=== PATIENT | female | born 1965 | race Caucasian/White ===

== ENCOUNTER → 2017-12-13 11:25 | Outpatient (CLI) | payer OTHER, SELFPAY ==
[2017-12-13 15:46] LABS: Absolute Lymphocyte Count 2.76 X10^3/ul (0.83-4.51); Absolute Neutrophil Count 4.3 X10^3/uL (2.0-7.7); Basophil# 0.02 X10^3/uL; Basophil% 0.3 % (0-1); Eosinophil# 0.14 X10^3/uL; Eosinophils% 1.8 % (0-5); Hematocrit 43.1 % (37-47); Hemoglobin 14.1 g/dl (12.0-15.0); Lymphocyte # 2.76 X10^3/ul (4.0); Lymphocyte % 35.8 % (19-41); Mean Corp Hgb Conc 32.7 g/gl (32-36); Mean Corpuscular Hgb 29.6 pg (27.0-32.0); Mean Corpuscular Volume 90.4 fL (81-99); Mean Platelet Vol. 13.8 fl (6.2-12.0); Monocyte# 0.52 X10^3/uL; Monocyte% 6.7 % (0-10); Neutrophil # 4.27 X10^3/uL (2.7-7.7); Neutrophil % 55.3 % (47-70); Platelet Count 187 K/mm3 (150-450); RBC Distribution Width CV 13.4 % (11.6-14.6); RBC Distribution Width SD 44.4 fl (35.1-43.9); Red Blood Count 4.77 M/mm3 (4.2-5.4); White Blood Count 7.7 K/mm3 (4.4-11.0)
[2017-12-13 15:47] LABS: POSITIVE COUNT NO; POSITIVE DIFFERENTIAL NO; POSITIVE MORPHOLOGY NO
[2017-12-13 16:05] LABS: T4 Free Direct 1.15 ng/dL (0.76-1.46); Thyroid Stim Hormone (TSH) 2.52 uIU/mL (0.358-3.74)
== END ==
PROVIDERS: Family Provider Family Medicine; PCP Family Medicine; Visit Provider Family Medicine
DX: J02.9 Acute pharyngitis, unspecified (principal); E04.9 Nontoxic goiter, unspecified
CPT/HCPCS: 36415; 84439; 84443; 85025

== ENCOUNTER → 2017-12-19 10:43 | Outpatient (CLI) | payer OTHER, SELFPAY ==
--- NOTE | 2017-12-19 10:45 | US_ITS ---
STUDY: THYROID ULTRASOUND REASON FOR EXAM: Female, 52 years old. Enlarged thyroid gland. TECHNIQUE: Ultrasound evaluation of the thyroid was performed with real-time and static barton-scale imaging. COMPARISON: None. FINDINGS: RIGHT LOBE: The right lobe of the thyroid gland measures 4.6 x 1.6 x 1.9 cm. There is a heterogeneous echotexture. There are multiple solid nodules measuring up to 6 mm. LEFT LOBE: The left lobe of the thyroid gland measures 4.1 x 1.7 x 1.7 cm. There is a heterogeneous echotexture. There are multiple solid nodules measuring up to 12 mm. ISTHMUS: The isthmus measures 4 mm. . The regional lymph nodes are normal. US/Thyroid IMPRESSION: Heterogenous echotexture of the thyroid parenchyma with multiple bilateral solid nodules measuring up to 6 mm on the right and up to 12 mm on the left. Electronically Signed: Jj Evans MD at 3:31 EST Tel , Service support ,
== END ==
PROVIDERS: Family Provider Family Medicine; PCP Family Medicine; Visit Provider Family Medicine
DX: J02.9 Acute pharyngitis, unspecified (principal)
CPT/HCPCS: 76536

== ENCOUNTER → 2018-01-09 18:48 | Outpatient (CLI) | payer OTHER, SELFPAY ==
--- NOTE | 2018-01-09 09:30 | ASPS_PTH ---
PATIENT: OWEN KASPER LOC: [facility] U#:[id number] AGE/SX: 60/F ROOM: RE01/09/[address]: Dr. Wayne Tidwell MD : 1965 BED: DIS: SPEC #: [id number] RECD: 01/09/18 17:50 STATUS: MINERVA CODY #: [id number] RAMON: 01/09/18 09:[address]: Wayne Tidwell DEPT: CYTOLOGY RECD BY: David Cordoba ENTERED: 01/10/18 09:26 SP TYPE: ASPIRATION OTHR DR: Dr. Cierra Damon, DO Tissues: Thyroid gland, NOS Procedures: Pap Stain (control) Special Stain Group II Cytology Other HEADER OPERATION: Left thyroid FNA PRE-OP DIAGNOSIS: Left thyroid nodules TISSUE SUBMITTED: Left thyroid slides (5) DIAGNOSIS CYTOLOGY Left thyroid nodule, FNA (smear): Consistent with benign follicular nodule. SJ:sp 01/11/18 COMMENT Correlation and clinical, radiologic findings and appropriate followup are necessary. CYTOLOGY STUDY Slides are reviewed. The specimen is adequate for evaluation. The specimen consists of benign follicular cells and small amount of colloid. CYTOLOGY GROSS Received are five smears labeled with the patient's name and designated per the requisition as left thyroid. Submitted for staining. 01/10/18 TC: 5 [facility]: [id number]
== END ==
PROVIDERS: Family Provider Family Medicine; PCP Family Medicine; Visit Provider Surgery
DX: E04.1 Nontoxic single thyroid nodule (principal)
CPT/HCPCS: 88161; 88313

== ENCOUNTER → 2018-10-30 08:54 | Outpatient (CLI) | payer OTHER, SELFPAY ==
[2018-10-30 11:43] LABS: Absolute Lymphocyte Count 2.47 X10^3/ul (0.83-4.51); Absolute Neutrophil Count 3.1 X10^3/uL (2.0-7.7); Basophil# 0.02 X10^3/uL; Basophil% 0.3 % (0-1); Eosinophil# 0.16 X10^3/uL; Eosinophils% 2.6 % (0-5); Hemoglobin 14.4 g/dl (12.0-15.0); Lymphocyte # 2.47 X10^3/ul (4.0); Lymphocyte % 39.8 % (19-41); Mean Corpuscular Hgb 29.2 pg (27.0-32.0); Mean Corpuscular Volume 91.3 fL (81-99); Mean Platelet Vol. 13.5 fl (6.2-12.0); Monocyte# 0.48 X10^3/uL; Monocyte% 7.7 % (0-10); Neutrophil # 3.05 X10^3/uL (2.7-7.7); Neutrophil % 49.3 % (47-70); POSITIVE COUNT NO; POSITIVE DIFFERENTIAL NO; POSITIVE MORPHOLOGY NO; Platelet Count 204 K/mm3 (150-450); RBC Distribution Width CV 13.6 % (11.6-14.6); RBC Distribution Width SD 44.8 fl (35.1-43.9); Red Blood Count 4.93 M/mm3 (4.2-5.4); White Blood Count 6.2 K/mm3 (4.4-11.0)
[2018-10-30 12:04] LABS: ALB/GLOB Ratio 1.2 RATIO (0.9-2.4); AST(SGOT) 15 U/L (15-37); Alanine Aminotransfer ALT/SGPT 30 U/L (13-56); Albumin, Serum 3.8 g/dL (3.2-5.0); Alkaline Phosphatase 91 U/L (45-117); Anion Gap 7 (5-15); BUN 14 mg/dL (7-18); BUN/Creat Ratio 16.2 RATIO (10-20); Calcium,Total 8.6 mg/dL (8.5-10.1); Chloride 109 mmol/L (98-107); Creatinine, Serum 0.86 mg/dL (0.55-1.02); EST Glomerular Filtration Rate 73 mL/min (>60); Est Glom Filt Rate - Afr Amer 88 mL/min (>60); Globulin 3.1 g/dL (2.2-4.2); Glucose 114 mg/dL (74-106); Potassium 4.4 mmol/L (3.5-5.1); Protein, Total 6.9 g/dL (6.4-8.2); Sodium Level 141 mmol/L (136-145)
[2018-10-30 12:07] LABS: Vitamin B12 363 pg/mL (211-911); Vitamin D,25 Hydroxy 27.4 ng/mL (29.95-100.01)
--- OUTSIDE RECORDS SUMMARY | 2019-01-04 00:23 | XMS RPT_ITS ---
:1965 Author Organization OHIP Support Name Relationship Address Phone SHANEL KASPER Unavailable [address] + [place] [address] IAC Unavailable [address] + [place] [phone] MAJO SHANEL Unavailable [id number] + [place] [phone] IAC Unavailable [address] + [place] [address] SHANEL KASPER Unavailable [address] + [place] [phone] IAC Unavailable [address] + [place] [phone] SHANEL KASPER Unavailable [address] + [place] [phone] IAC Unavailable [address] + [place] [phone] SHANEL KASPER Unavailable [phone] + [place] [phone] IAC Unavailable [address] + [place] [phone] IAC Unavailable [address] + [place] [phone] SHANEL KASPER Unavailable [address] + [place] [phone] IAC Unavailable [address] + [place] [phone] ESTRELLA ELLIOTT Unavailable [address] [facility] [address] + [place] [address] SHANEL KASPER Unavailable [address] [facility] [address] + [place] [phone] IAC Unavailable [address] + [place] [address] ESTRELLA ELLIOTT Unavailable [phone] + [place] [address] Care Team Providers Name Role Phone Cierra Damon Attending Unavailable Malys, Cierra Primary Care Unavailable Clovis Rod Attending Unavailable Malys, Cierra Primary Care Unavailable Clovis oRd Attending Unavailable Clovis Rod Referring Unavailable Malys, Cierra Primary Care Unavailable Cebul, Wayne Attending Unavailable Malys, Cierra Referring Unavailable Malys, Cierra Primary Care Unavailable Cebul, Wayne Attending Unavailable Malys, Cierra Referring Unavailable Malys, Cierra Primary Care Unavailable Cebul, Wayne Attending Unavailable Malys, Cierra Primary Care Unavailable Cebul, Wayne Referring Unavailable Gabriel Barajas Attending Unavailable Malys, Cierra Referring Unavailable PROBLEMS PROBLEMS DATE TYPE CONDITION / CODE ATTENDING STATUS SOURCE 10/30/2018 Unknown E55.9 - Vitamin D Malys, Cierra Active [place] deficiency, Community unspecified / Hospital E55.9(ICD-10) Repository 10/30/2018 Unknown E53.8 - Deficiency Malys, Cierra Active [place] of other specified Community B group vitamins / Hospital E53.8(ICD-10) Repository 10/30/2018 Unknown R22.1 - Localized Malys, Cierra Active [place] swelling, mass and Community lump, neck / Hospital R22.1(ICD-10) Repository 10/30/2018 Unknown Z51.81 - Encounter MalCierra romero Active [place] for therapeutic Community drug level Hospital monitoring / Repository Z51.81(ICD-10) 01/09/2018 Unknown E04.2 - Nontoxic CebulWayne Active [place] multinodular Community goiter / Hospital E04.2(ICD-10) Repository 01/09/2018 Unknown E04.1 - Nontoxic Cebul, Wayne Active [place] single thyroid Community nodule / Hospital E04.1(ICD-10) Repository 12/19/2017 Unknown J02.9 - Acute MarcelClovis Active [place] pharyngitis, Community unspecified / Hospital J02.9(ICD-10) Repository 12/13/2017 Unknown E04.9 - Nontoxic Marcel, Clovis Active [place] goiter, Community unspecified / Hospital E04.9(ICD-10) Repository PROCEDURES PROCEDURES No Procedure Records FoundRESULTS RESULTS CBC W/DIFF, AUTOMATED Collected: 10/30/2018 Status: F Source: [place] 8:57 AM [facility] REPOSITORY TYPE CODE TESTS RESULT OUT OF RANGE REFERENCE UNITS LAB L100.1000 4.4-11.0 K/mm3 Normal WBC 6.2 LAB L100.1200 4.2-5.4 M/mm3 Normal RBC 4.93 LAB L100.1300 12.0-15.0 g/dl Normal HGB 14.4 LAB L100.1400 37-47 % Normal HCT 45.0 LAB L100.1500 81-99 fL Normal MCV 91.3 LAB L100.1600 27.0-32.0 pg Normal MCH 29.2 LAB L100.1700 32-36 g/gl Normal MCHC 32.0 LAB L100.1810 11.6-14.6 % Normal RDW CV 13.6 LAB L100.1820 35.1-43.9 fl High RDW SD 44.8 LAB L100.1900 150-450 K/mm3 Normal PLT 204 LAB L100.2000 6.2-12.0 fl High MPV 13.5 LAB L100.2100 47-70 % Normal NEUT% 49.3 LAB L100.2200 19-41 % Normal LY% 39.8 LAB L100.2300 0-10 % Normal MONO% 7.7 LAB L100.2400 0-5 % Normal EO% 2.6 LAB L100.2500 0-1 % Normal BASO% 0.3 LAB L100.2550 0.0-0.9 % Normal IM GRAN % 0.300 Result Comment: IG% - Immature Granulocytes (promyelocytes, myelocytes and metamyelocytes) > 1% indicates that a LEFT SHIFT is Present. LAB L100.2620 2.0-7.7 X10 3/uL Normal Absolute Neut 3.1 LAB L100.2720 0.83-4.51 X10 3/ul Normal Absolute Lymph 2.47 Performed By: #### L100.0100 #### [facility] [address] [place], [place], [address] COMPREHENSIVE METABOLIC Collected: 10/30/2018 Status: F Source: [place] 8:57 AM [facility] REPOSITORY TYPE CODE TESTS RESULT OUT OF RANGE REFERENCE UNITS LAB L501.0100 74-106 mg/dL High GLU 114 Result Comment: Fasting Glucose result from 100 to 125 mg/dL suggests IMPAIRED HOMEOSTASIS per A.D.A. criteria. Please note revised GLUCOSE reference range effective 2017. LAB L501.1000 7-18 mg/dL Normal BUN 14 LAB L501.1100 0.55-1.02 mg/dL Normal CREAT,SERUM 0.86 Result Comment: The validity of the calculated GFR AND GFRAA in patients over 70 years has not been determined. Clinical correlation is essential. LAB L501.1110 >60 mL/min Normal EST GFR 73 Result Comment: Non- GFR Calc LAB L501.1115 >60 mL/min Normal EST GFR - AA 88 Result Comment: GFR Calc LAB L501.1300 10-20 RATIO Normal BUN/CRE 16.2 LAB L501.1500 6.4-8.2 g/dL T Normal PROT 6.9 LAB L501.1800 3.2-5.0 g/dL Normal ALB 3.8 LAB L501.1950 2.2-4.2 g/dL Normal GLOB 3.1 LAB L501.2000 0.9-2.4 RATIO Normal A/G 1.2 LAB L501.2200 8.5-10.1 mg/dL CA Normal 8.6 LAB L501.4100 15-37 U/L Normal AST 15 LAB L501.4305 45-117 U/L Normal ALK P 91 LAB L501.4405 13-56 U/L Normal ALT 30 LAB L501.4600 0.20-1.00 mg/dL T Normal BILI 0.50 LAB L501.5300 136-145 mmol/L NA Normal 141 LAB L501.5600 3.5-5.1 mmol/L K Normal 4.4 LAB L501.5900 98-107 mmol/L High CL 109 LAB L501.6100 21.0-32.0 mmol/L Normal CO2 25.0 LAB L501.6200 5-15 Normal GAP 7 Performed By: #### L500.4050 #### [facility] [place], [address] VITAMIN B12 Collected: 10/30/2018 Status: F Source: [place] 8:57 AM [facility] REPOSITORY TYPE CODE TESTS RESULT OUT OF RANGE REFERENCE UNITS LAB L503.0105 211-911 pg/mL Normal Vitamin B12 363 Performed By: #### L503.0105, L506.1000 #### [facility] [address] [place], [address] VITAMIN D,25 HYDROXY Collected: 10/30/2018 Status: F Source: [place] 8:57 AM [facility] REPOSITORY TYPE CODE TESTS RESULT OUT OF REFERENCE UNITS RANGE LAB L506.1000 29.95-100.01 ng/mL Low Vitamin D 27.4 25-OH Result Comment: Vitamin D 25(OH) Status Range Deficiency <20 ng/mL (50nmol/L) Insuffciency 20 - 30 ng/mL (50 - 75 nmol/L) Sufficiency 30 - 100 ng/mL (75 - 250 nmol/L) Toxicity >100 ng/mL (>250 nmol/L) Performed By: #### L503.0105, L506.1000 #### [facility] [address] [place], [address] SURGERY VISIT REPORT Observed: 01/09/2018 Status: F Source: [place] 9:54 AM [facility] REPOSITORY [facility] [address] [place] [address] OFFICE VISIT Date of Service: 01/09/18 MR#: [id number] Acct: [id number] Name: MABLE KASPER Joseluis Rep #: [id number] : 1965 Provider: Wayne Tidwell MD Age/Sex: 52/F Location: [facility] Status: Signed Intake Intake Visit Reasons: left thyroid FNA Gate Person Required: No Is patient in pain?: No Allergies prochlorperazine [From Compazine] Allergy (Verified 01/09/18 09:26) Unknown prochlorperazine edisylate [From Compazine] Allergy (Verified 01/09/18 09:26) Unknown prochlorperazine maleate [From Compazine] Allergy (Verified 01/09/18 09:26) Unknown Gkzzaop-Bln-Cby Reductase Inhibitor Allergy (Verified 01/09/18 09:26) Unknown codeine Adverse Reaction (Verified 01/09/18 09:26) Other Medications Ketorolac [Toradol] 10 mg PO Q6H PRN #20 tab 08/22/15 [Rx Confirmed 01/09/18] Propranolol HCl 80 mg PO BID 02/08/16 [History Confirmed 01/09/18] proMETHazine tablet [Phenergan] 25 mg PO Q4H PRN PRN 02/08/16 [History Confirmed 01/09/18] Ergocalciferol [Vitamin D] 50,000 unit PO Q7D 04/02/17 [History Confirmed 01/09/18] Gabapentin [Neurontin] 300 mg PO TID 04/02/17 [History Confirmed 01/09/18] Albuterol Inhaler [Ventolin Hfa] 1 - 2 puff INHALATION Q4H PRN PRN #1 inhaler 07/19/17 [Rx Confirmed 01/09/18] noehmlosyy-wdyuxufiohfhz-knvoecqg 50 mg-300 mg-40 mg capsule 1 cap PO ONCE 12/31/17 [History Confirmed 01/09/18] lorazepam 0.5 mg tablet 0.5 mg PO Q4H PRN 12/31/17 [History Confirmed 01/09/18] oxycodone 5 mg capsule 5 mg PO Q3H 12/31/17 [History Confirmed 01/09/18] pantoprazole 40 mg tablet,delayed release 40 mg PO QAM 12/31/17 [History Confirmed 01/09/18] varenicline 1 mg tablet 1 mg PO BID 12/31/17 [History Confirmed 01/09/18] PFSH Medical History Multiple thyroid nodules (Acute) Palpitations (Chronic) GERD (gastroesophageal reflux disease) (Chronic) Obesity (Chronic) Body mass index greater than 30 (Chronic) Hyperlipidemia (Acute) Migraines (Acute) thumbnail removal (Acute) HTN (hypertension) (Chronic) Surgical History H/O: hysterectomy (Acute) History of laparoscopic cholecystectomy (Acute) S/P partial hysterectomy (Acute) Family History Mother Multiple sclerosis Father Diabetes Hypertension Cancer Brother Diabetes Hypertension CAD (coronary artery disease) Social History Smoking Status: Current every day smoker alcohol intake: never HPI HPI HPI: MABLE KASPER, is a 52 F who presents to the office today for ultrasound fine-needle aspiration left thyroid Office Procedures 80193 FNA Thyroid Performed By: Procedure performed by: Doyle Details: Informed consent was obtained Ultrasound guided final aspiration vague left thyroid nodule Patient was taken to procedure room. She was placed on the table. Under ultrasound guidance left thyroid was inspected. It appeared to have a mildly diffusely heterogenous texture. A vague nodule more in the superior lateral aspect of the gland was identified. Under ultrasound guidance 1% lidocaine mixed 50-50 with 0.5% Marcaine was used as a local anesthetic. A total of 8 cc ended up being used. Admitted the patient was very anxious throughout the entire procedure today. The nodule was somewhat difficult to consistently get visualized. A 25-gauge needle was initially advanced in the lesion but no specimen could be obtained. I then upgraded to 23-gauge needles. 3 separate passes were performed. Specimen was smeared out on slides and treated with fixative. At this point I felt was pertinent to await the cytology prior to proceeding with further intervention. The patient will be notified of cytology results as they become available Wayne Tidwell M.D., F.A.C.S. Procedure Time Out Time Out Informed consent given: Yes Consent signed: Yes Time out checklist: patient, procedure, site marked/identified, positioning of patient, supplies available, allergies confirmed, team agrees on procedure Time out staff in room: Yes Time out verified: Yes Time out date: 01/09/18 Time out time: 09:26 Assessment AND Plan 1. Multiple thyroid nodules E04.2 Plan The patient will be notified of cytology results as they become available then further follow-up recommendations. Please refer to my previous office visit recommending that she pursue a ENT referral regarding her hoarseness Wayne Tidwell M.D., F.A.C.S. Plan Detail Other Orders Orders: Coding Level of Care Code No Charge Diagnoses Multiple thyroid nodules E04.2 01/09/18 0954 <Electronically signed by Wayne Tidwell MD> Date Wayne Tidwell MD Cosigner Signature: Date (if applicable) CC: ASPIRATION (SLIDES Observed: 01/09/2018 Status: F Source: [place] ONLY) 9:30 AM [facility] REPOSITORY Patient: MABLE KASPER : 1965 (52/F) Acct Num: [id number] Phys: Diann ESTES,Wayne Unit Num: [id number] Loc: [facility] Specimen: [id number] Received: 01/09/18 - 1749 Spec Type: ASPIRATION TISSUES TISSUES: Thyroid gland, NOS COMMENT Correlation and clinical, radiologic findings and appropriate followup are necessary. CYTOLOGY GROSS Received are five smears labeled with the patient's name and designated per the requisition as left thyroid. Submitted for staining. / 01/10/18 TC: 5 CPT: 52501 CYTOLOGY STUDY Slides are reviewed. The specimen is adequate for evaluation. The specimen consists of benign follicular cells and small amount of colloid. DIAGNOSIS CYTOLOGY Left thyroid nodule, FNA (smear): Consistent with benign follicular nodule. SJ:sp 01/11/18 HEADER OPERATION: Left thyroid FNA PRE-OP DIAGNOSIS: Left thyroid nodules TISSUE SUBMITTED: Left thyroid slides (5) Signed Timothy Wright 01/11/18 <signature on file> Performed By: #### PASPS #### [facility] [address] [place], [address] SURGERY VISIT REPORT Observed: 12/31/2017 Status: F Source: [place] 10:37 AM [facility] REPOSITORY [facility] [address] [id number] OFFICE VISIT Date of Service: 12/31/17 MR#: [id number] Acct: [id number] Name: MABLE KASPER Rep #: [id number] : 1965 Provider: Wayne Tidwell MD Age/Sex: 52/F Location: [facility] Status: Signed Intake Vital Signs12/31/17 Height 5 ft 4 in 12/31/17 Weight: 190 lb 12/31/17 Body Mass Index (BMI) 32.5 Intake Visit Reasons: THYROID NODULE Gate Person Required: No Is patient in pain?: No Allergies prochlorperazine [From Compazine] Allergy (Verified 12/31/17 09:10) Unknown prochlorperazine edisylate [From Compazine] Allergy (Verified 12/31/17 09:10) Unknown prochlorperazine maleate [From Compazine] Allergy (Verified 12/31/17 09:10) Unknown Sfzkhtt-Cqd-Enh Reductase Inhibitor Allergy (Verified 12/31/17 09:10) Unknown codeine Adverse Reaction (Verified 12/31/17 09:10) Other Medications Ketorolac [Toradol] 10 mg PO Q6H PRN #20 tab 08/22/15 [Rx Confirmed 12/31/17] ProMETHAzine [Phenergan] 25 mg PO Q4H PRN PRN 02/08/16 [History Confirmed 12/31/17] Propranolol HCl 80 mg PO BID 02/08/16 [History Confirmed 12/31/17] Ergocalciferol [Vitamin D] 50,000 unit PO Q7D 04/02/17 [History Confirmed 12/31/17] Gabapentin [Neurontin] 300 mg PO TID 04/02/17 [History Confirmed 12/31/17] Albuterol Inhaler [Ventolin Hfa] 1 - 2 puff INHALATION Q4H PRN PRN #1 inhaler 07/19/17 [Rx Confirmed 12/31/17] cibzypgbiy-brvhxizvinmgu-xvymxxsn 50 mg-300 mg-40 mg capsule 1 cap PO ONCE 12/31/17 [History Confirmed 12/31/17] lorazepam 0.5 mg tablet 0.5 mg PO Q4H PRN 12/31/17 [History Confirmed 12/31/17] oxycodone 5 mg capsule 5 mg PO Q3H 12/31/17 [History Confirmed 12/31/17] pantoprazole 40 mg tablet,delayed release 40 mg PO QAM 12/31/17 [History Confirmed 12/31/17] varenicline 1 mg tablet 1 mg PO BID 12/31/17 [History Confirmed 12/31/17] PFSH Medical History Palpitations (Chronic) GERD (gastroesophageal reflux disease) (Chronic) Obesity (Chronic) Body mass index greater than 30 (Chronic) Hyperlipidemia (Acute) Migraines (Acute) thumbnail removal (Acute) HTN (hypertension) (Chronic) Surgical History H/O: hysterectomy (Acute) History of laparoscopic cholecystectomy (Acute) S/P partial hysterectomy (Acute) Family History Mother Multiple sclerosis Father Diabetes Hypertension Cancer Brother Diabetes Hypertension CAD (coronary artery disease) Social History Smoking Status: Current every day smoker alcohol intake: never HPI HPI HPI: MABLE KASPER, is a 52 F who presents to the office today for surgical consultation regarding hoarseness. The patient is referred by Dr. Rod for evaluation of abnormal thyroid clinical findings and ultrasound findings. A written copy of my surgical consult recommendations will return to him. The patient has been a lifelong cigarette smoker. In the past month she has developed hoarseness. She also notes anterior neck pain. On clinical examination thyroid was felt to be enlarged. At the [facility] on December 19, 2017 she had thyroid ultrasound done. The right lobe measured 4.6 cm there are multiple solid nodules measuring up to 6 mm. The left lobe measures 4.1 cm. Multiple solid nodules measuring up to 12 mm were identified. The patient denies any history of head neck radiation treatment. There is no personal or family history of thyroid cancer. ROS General General: Yes fatigue; no weight change, appetite, colon cancer, breast cancer or weakness HEENT HEENT: Yes difficulty swallowing and swollen glands; no eye injury, eye surgery or hoarseness Endo Endocrine: No thyroid disease, diabetes mellitus, thyroid cancer, Hair loss, heat intolerance or cold intolerance Skin Skin: No rash or changing moles Breast Breast: No left breast lump, right breast lump, nipple discharge, breast pain, abnormal mammogram, abnormal US or breast enlargement Musc Musculoskeletal: Yes back problems; no arthritis, rheumatoid arthritis, gout or joint pain Cardio Cardiovascular: Yes high blood pressure; no murmur, pacemaker, heart disease, atrial fibrillation, heart attack, heart stent, palpitations, shortness of breat with exertion or chest pain Psych Psychiatric: No depression, anxiety or hearing voices Resp Respiratory: No shortness of breath, No sleep apnea, No cough, No COPD, No asthma, No emphysema, No wheezing Gastro Gastrointestinal: Yes acid reflux, No abdominal pain, No nausea or vomiting, No diarrhea, No constipation, No blood in stool, No hemorrhoids, No ulcers, No gallbladder problem, No black,tarry stools Sergo Hematologic: No blood thinners, No blood disorders, No bleeding, No anemia, No blood clots Neuro Neurologic: No system reviewed and no additional complaints, except as docu, No as per HPI, No abnormal walking, No abnormal hearing, No abnormal movements, No abnormal speech, No behavioral changes, No burning sensations, No confusion, No seizure-like activity, No unsteadiness, No dizziness, No localized weakness, No frequent falls, No headache(s), No lack of coordination, No loss of vision, No memory loss, Yes numbness, No other visual disturbances, No radiating pain, No restless legs, No sensory deficit, No fainting, Yes tingling, No tremor(s), No weakness, No other Exam Neck Other: Neck is supple, she does not appear to have any anterior neck tenderness. I do not appreciate significant gland abnormality. Carotids are 3+ without bruits. I do not detect any cervical or supraclavicular adenopathy. Chvostek is negative Chest Breast Palpation: No nipple discharge Resp Auscultation: clear to auscultation bilaterally Other: Increased anterior posterior diameter Cardio Rate: regular rate Rhythm: regular rhythm Heart Sounds: no murmurs Assessment AND Plan Problems 1. Multiple thyroid nodules E04.2 Plan 52-year-old female with multiple thyroid nodules. Less than 10 mm nodules on the right. At least one 12 mm nodule on the left. Hoarseness is a primary complaint. The patient had a very heavy odor of tobacco. She is at least a 1 pack a day smoker. I recommend that we schedule her for an ultrasound-guided left thyroid fine-needle aspiration. I will inspect both sides during that appointment. I discussed the technique, benefits, risks, alternatives. She may have some anterior neck soreness secondary to thyroiditis and I believe that biopsy is pertinent. With hoarseness as her primary complaint and her long-term history of tobacco abuse I am referring to ENT in hopes of excluding a primary hypopharyngeal/laryngeal process. She has had an opportunity to ask questions answered. I very much appreciate the kind opportunity of assisting with her surgical care. Cc: Dr. Marcel Tidwell M.D., F.A.C.S. Medications Discontinued: Coding Level of Care Code adrianna Lemon fwd Diagnoses Multiple thyroid nodules E04.2 12/31/17 1037 <Electronically signed by Wayne Tidwell MD> Date Wayne Tidwell MD Cosigner Signature: Date (if applicable) CC: Clovis Rod DO THYROID Observed: 12/19/2017 Status: F Source: [place] 10:46 AM [facility] REPOSITORY [facility] Imaging Services [address] [place] [address] Thyroid MR#: [id number] Acct: [id number] Name: MABLE KASPER Rep #: [id number] : 1965 F 52 From: Jj Evans MD PCP: Cierra Damon DO Status: REG CLI Study: Thyroid Date of Exam: 12/19/17 Exam# [id number] Ordering Dr: Clovis Rod DO STUDY: THYROID ULTRASOUND REASON FOR EXAM: Female, 52 years old. Enlarged thyroid gland. TECHNIQUE: Ultrasound evaluation of the thyroid was performed with real-time and static barton-scale imaging. COMPARISON: None. FINDINGS: RIGHT LOBE: The right lobe of the thyroid gland measures 4.6 x 1.6 x 1.9 cm. There is a heterogeneous echotexture. There are multiple solid nodules measuring up to 6 mm. LEFT LOBE: The left lobe of the thyroid gland measures 4.1 x 1.7 x 1.7 cm. There is a heterogeneous echotexture. There are multiple solid nodules measuring up to 12 mm. ISTHMUS: The isthmus measures 4 mm. . The regional lymph nodes are normal. US/Thyroid IMPRESSION: Heterogenous echotexture of the thyroid parenchyma with multiple bilateral solid nodules measuring up to 6 mm on the right and up to 12 mm on the left. Electronically Signed: Jj Evans MD at 3:31 EST Tel , Service support , CC: Cierra Damon DO; Clovis Rod DO Chemical Project Engineer: Signed CBC W/DIFF, AUTOMATED Collected: 12/13/2017 Status: F Source: [place] 11:35 AM [facility] REPOSITORY TYPE CODE TESTS RESULT OUT OF RANGE REFERENCE UNITS LAB L100.1000 4.4-11.0 K/mm3 Normal WBC 7.7 LAB L100.1200 4.2-5.4 M/mm3 Normal RBC 4.77 LAB L100.1300 12.0-15.0 g/dl Normal HGB 14.1 LAB L100.1400 37-47 % Normal HCT 43.1 LAB L100.1500 81-99 fL Normal MCV 90.4 LAB L100.1600 27.0-32.0 pg Normal MCH 29.6 LAB L100.1700 32-36 g/gl Normal MCHC 32.7 LAB L100.1810 11.6-14.6 % Normal RDW CV 13.4 LAB L100.1820 35.1-43.9 fl High RDW SD 44.4 LAB L100.1900 150-450 K/mm3 Normal PLT 187 LAB L100.2000 6.2-12.0 fl High MPV 13.8 LAB L100.2100 47-70 % Normal NEUT% 55.3 LAB L100.2200 19-41 % Normal LY% 35.8 LAB L100.2300 0-10 % Normal MONO% 6.7 LAB L100.2400 0-5 % Normal EO% 1.8 LAB L100.2500 0-1 % Normal BASO% 0.3 LAB L100.2550 0.0-0.9 % Normal IM GRAN % 0.100 Result Comment: IG% - Immature Granulocytes (promyelocytes, myelocytes and metamyelocytes) > 1% indicates that a LEFT SHIFT is Present. LAB L100.2620 2.0-7.7 X10 3/uL Normal Absolute Neut 4.3 LAB L100.2720 0.83-4.51 X10 3/ul Normal Absolute Lymph 2.76 Performed By: #### L100.0100 #### [facility] [address], [address] THYROID STIM HORMONE Collected: 12/13/2017 Status: F Source: [place] (TSH) 11:35 AM [facility] REPOSITORY TYPE CODE TESTS RESULT OUT OF RANGE REFERENCE UNITS LAB L501.9520 0.358-3.74 uIU/mL Normal TSH 2.52 Performed By: #### L501.9520, L506.0400 #### [facility] [address] [place], [address] T4 FREE DIRECT Collected: 12/13/2017 Status: F Source: [place] 11:35 AM [facility] REPOSITORY TYPE CODE TESTS RESULT OUT OF RANGE REFERENCE UNITS LAB L506.0400 0.76-1.46 ng/dL Normal T4 FREE 1.15 DIRECT Performed By: #### L501.9520, L506.0400 #### [facility] [address] [place], [address] ALLERGIES ALLERGIES DATE TYPE / NAME / CODE REACTION SEVERITY SOURCE CODE 01/09/2018 Drug prochlorperazine Unknown Unknown [place] Allergy/41 edisylate/[id number](R [facility] [id number][facility] 01/09/2018 Drug prochlorperazine Unknown Unknown [place] Allergy/41 maleate/[id number]([id number] 01/09/2018 Drug Lnwloug-Hxn-Fqd Unknown Unknown [place] Allergy/41 Reductase [facility] [id number]( Inhibitor/[id number]([facility]) XNORM) Repository 01/09/2018 Drug prochlorperazine/F0060 Unknown Unknown [place] Allergy/41 32102(RXNORM) Community [id number]([facility]) Repository 01/09/2018 Drug codeine/[id number](RXN Other Unknown [place] Allergy/41 ORM) Community [id number]([facility]) Repository ENCOUNTERS ENCOUNTERS ADMIT/DISCHARGE ACCOUNT ADMITTING ENCOUNTER LOCATION SOURCE NUMBER CLASS 10/30/2018 [id number] Ambulatory [place] 7 [facility] ing:BFHLAB Repository 07/31/2018/ [id number] Ambulatory BMSBuilding:B [place] 8 4 [place].[facility] Repository 01/09/2018 [id number] Ambulatory [place] 4 [facility] ing:LABSPEC Repository 01/09/2018/ [id number] Ambulatory BMSBuilding:B [place] 8 2 [facility] Repository 12/31/2017/ [id number] Ambulatory BMSBuilding:B [place] 8 3 [facility] Repository 12/19/2017 [id number] Ambulatory [place] 5 [facility] ing:USHP Repository 12/13/2017 [id number] Ambulatory [place] 3 [facility] ing:BFHLAB Repository PAYERS PAYERS ENCOUNTER GUARANTOR PAYER SUBSCRIBER SOURCE 10/30/2018 MABLE Huggins Primary Insurance:MED MABLE [place]oster [id number] [facility]: [id number] [address]Lfr: [id number] Repository Date:5837-89-70NC [address] ([address]) [id number], [place] [address]GF: CHECK WEBSITE 10/30/2018 Secondary NOT GIVENUNK [place] Insurance:SELF PAY [facility] Number: Effective Repository Date:2018-10-30 07/31/2018 AMBLE Huggins Primary NOT GIVENUNK [place] [id number] CR Insurance:SELF PAY [address] [address]Lwu: (419) Number: Effective Repository [phone] () Date:2018-07-31 01/09/2018 MABLE K Primary Insurance:MED MABLE K [place] [id number] CR MUTUAL TPAPolicy DAWSONDOB: [address] Number: [id number] Hospital [address]Ctj: [phone]) [id number] Repository [phone] () Date:0761-18-60BZ [address] [address], [place] [address]DH: CHECK WEBSITE 01/09/2018 Secondary NOT GIVENUNK [place] Insurance:SELF PAY [facility] Number: Effective Repository Date:2018-01-09 01/09/2018 MABLE K Primary Insurance:MED MABLE K [place] [id number] CR MUTUAL TPAPolicy DAWSONDOB: [address] Number: [id number] Hospital [address]Zvg: [id number] Repository [phone] () Date:7859-18-91PV [address] [address], [place] [address]RL: CHECK WEBSITE 01/09/2018 Secondary NOT GIVENUNK [place] Insurance:SELF PAY [facility] Number: Effective Repository Date:2018-01-09 12/31/2017 MABLE K Primary Insurance:MED MABLE K [place] [id number] CR MUTUAL TPAPolicy DAWSONDOB: [address] Number: [id number] Hospital [address]Lqu: [phone]) [id number] Repository [phone] () Date:2142-79-70ZQ [address] [address], [place] [address]IL: CHECK WEBSITE 12/31/2017 Secondary NOT GIVENUNK [place] Insurance:SELF PAY [facility] Number: Effective Repository Date:2017-12-24 12/19/2017 Mable K Primary Insurance:MED Mable K [place] [id number] Cr MUTUAL TPAPolicy DawsonDOB: [address] Number: [id number] Hospital [address]Utd: [phone]) [id number] Repository [phone] () Date:4512-77-91[place] [address] [address], [place] [address]RO: CHECK WEBSITE 12/19/2017 Secondary NOT GIVENUNK [place] Insurance:SELF PAY [facility] Number: Effective Repository Date:2017-12-18 12/13/2017 Mable Huggins Primary Insurance:MED Mable [id number] [facility] TPAPoly DawsonDOB: [address] Number: [id number] Hospital [address]Ctt: [phone]) [id number] Repository [phone] () Date:2885-12-08QC [address] [address], [place] [address]QL: CHECK WEBSITE 12/13/2017 Secondary NOT GIVENUNK [place] Insurance:SELF PAY [facility] Number: Effective Repository Date:2017-12-13
== END ==
PROVIDERS: Family Provider Family Medicine; PCP Family Medicine; Visit Provider Family Medicine
DX: Z51.81 Encounter for therapeutic drug level monitoring (principal); R53.83 Other fatigue; E55.9 Vitamin D deficiency, unspecified; E53.8 Deficiency of other specified B group vitamins; R22.1 Localized swelling, mass and lump, neck
CPT/HCPCS: 36415; 80053; 82306; 82607; 85025

== ENCOUNTER → 2018-11-18 11:42 | Outpatient (CLI) | payer OTHER, SELFPAY ==
--- NOTE | 2018-11-18 11:46 | US_ITS ---
STUDY: SUPERFICIAL ULTRASOUND - RIGHT NECK REASON FOR EXAM: Female, 53 years old. Swelling of the lateral right neck. TECHNIQUE: A superficial ultrasound was performed with real-time and static barton-scale imaging. COMPARISON: None. FINDINGS: Real-time sonographic imaging demonstrates no focal mass or fluid collection. Normal musculature and soft tissues are present. Limited views of the left neck were performed for comparison. There is no major difference between the images. US/Head/Neck Soft Tissue IMPRESSION: No sonographic evidence of abnormality in the right lower neck. Electronically Signed: Zachary Garcia DO at 18:43 EST Tel [phone], Service support ,
== END ==
LOC: US 11:42
PROVIDERS: Family Provider Family Medicine; PCP Family Medicine; Referring Provider Family Medicine; Visit Provider Family Medicine
DX: R22.1 Localized swelling, mass and lump, neck (principal)
CPT/HCPCS: 76536

== ENCOUNTER → 2019-01-13 11:24 | Outpatient (CLI) | payer OTHER, SELFPAY ==
--- NOTE | 2019-01-13 11:30 | US_ITS ---
STUDY: THYROID ULTRASOUND REASON FOR EXAM: Female, 53 years old. History of thyroid nodules. Follow-up examination. TECHNIQUE: Ultrasound evaluation of the thyroid was performed with real-time and static barton-scale imaging. COMPARISON: Comparison is made with prior study dated December 19, 2017. FINDINGS: RIGHT LOBE: The right lobe of the thyroid gland measures 4.2 cm x 1.7 cm x 2.1 cm. There is a heterogeneous echotexture. Once again, multiple solid nodules are seen scattered throughout the right lobe. The largest measures 7 mm x 7 mm x 5 mm. This is in the upper pole LEFT LOBE: The left lobe of the thyroid gland measures 4 cm x 1.7 cm x 2.0 cm. There is a heterogeneous echotexture. Once again, multiple nodules are seen. The largest measures 1.3 cm x 0.8 cm x 0.9 cm. ISTHMUS: The isthmus measures 6.0 mm. The regional lymph nodes are normal. US/Thyroid IMPRESSION: And homogeneous echotexture of both lobes of the thyroid gland with multiple nodules bilaterally more prominent on the left side. Electronically Signed: Vivek Torres, at 9:45 EDT , Service support ,
== END ==
PROVIDERS: Family Provider Family Medicine; PCP Family Medicine; Referring Provider Otolaryngology; Visit Provider Otolaryngology
DX: E04.2 Nontoxic multinodular goiter (principal)
CPT/HCPCS: 76536

== ENCOUNTER → 2020-11-13 08:49 | Outpatient (CLI) | payer OTHER, SELFPAY ==
--- NOTE | 2020-11-13 08:53 | CT_ITS ---
STUDY: CT CHEST WITHOUT CONTRAST- LOW DOSE SCREENING PROTOCOL REASON FOR EXAM: Female, 55 years old. Current smoker. 42 pack per year history. No current symptoms of lung cancer or pulmonary infection. Shared decision-making with referring PCP documented in patient''s record. RADIATION DOSAGE (If Supplied By Facility): CTDIvol = ( 3.02 ) mGy, DLP = ( 97.79 ) mGycm TECHNIQUE: Low dose screening CT examination performed from the base of the neck to the upper abdomen. Sagittal and coronal reformatted images performed. Sagittal and coronal MIP images provided. The measurements provided are average, rounded measurements per ACR guidelines. COMPARISON: None. FINDINGS: 1.2 cm sebaceous cyst of the medial right breast. Mild emphysematous changes. 4 mm noncalcified nodule in the posterior subpleural left lower lobe lungs on image 1:15 and follow-up CT is recommended in 12 months. There is no demonstrated pleural abnormality. There is a small pericardial effusion. Normal mediastinum. Normal hilar regions. Normal unenhanced pulmonary arteries. Normal aorta arch and descending thoracic aorta. Normal osseous structures. Status post cholecystectomy. CT/Low Dose CT Lung Screening IMPRESSION: 1. 4 mm noncalcified left lower lobe nodule and follow-up CT the chest is recommended 12 months document stability.. 2. Incidental findings include small pericardial effusion.. ASSESSMENT CATEGORY: LungRADS 2 - Benign Appearance or Behavior. Continue annual screening with LDCT in 12 months, per established ACR guidelines. Electronically Signed: David Gardner MD at 9:36 EST Tel , Service support ,
== END ==
PROVIDERS: PCP Student in an Organized Health Care Education/Training Program; Referring Provider Student in an Organized Health Care Education/Training Program; Visit Provider Student in an Organized Health Care Education/Training Program
DX: Z72.0 Tobacco use (principal); Z12.2 Encounter for screening for malignant neoplasm of respiratory organs
CPT/HCPCS: 71271

== ENCOUNTER 2021-07-21 15:28 | Emergency (ER) | payer OTHER, SELFPAY ==
[2021-07-21 15:29] VITALS: BP 160/99; PULSE 112; RESP 18; TEMP 36.6; O2SAT 95; BMI 31.8
--- NOTE | 2021-07-21 15:50 | EKG12_ITS ---
Test Reason : CP Blood Pressure : / mmHG Vent. Rate : 102 BPM Atrial Rate : 102 BPM P-R Int : 124 ms QRS Dur : 080 ms QT Int : 356 ms P-R-T Axes : 061 079 068 degrees QTc Int : 463 ms Sinus tachycardia with Premature atrial complexes Otherwise normal ECG Confirmed by CORIE ESTES, STEVE ([id number]), newspaper photo editor MARIA D YORK ([id number]) on 07/25/2021 12:22:27 PM Referred By: MARCELINA/ARTHUR Confirmed By:CONNOR FONTENOT MD
--- NOTE | 2021-07-21 15:53 | EDS_ITS ---
HPI History of Present Illness Chief Complaint: Chest Pain Informant: patient Onset/Context/Timing Onset: Days (2) Activity at onset: gradual Timing: Waxes and wanes Quality: Positive for Tightness Location: Left Parasternal Worsened By: Nothing Relieved By: Nothing Associated Symptoms: Positive for Nausea and Palpitations; Negative for Vomiting, Diaphoresis, Dyspnea, Cough, Fever, Lightheadedness and Acid Reflux Narrative Narrative: Patient presents with chest pain that has been waxing and waning over the past 2 days. Patient states it came on gradually. Patient describes as a tightness. Patient states it is worse of the left parasternal area. Patient states that today she had some pain going up into her jaw for several hours. Patient also states the pain has radiated to her left arm. Patient states she has been feeling fatigued over the last couple days. Patient admits to nausea but denies any vomiting. Patient admits to some palpitations last night. Patient states nothing makes her pain worse and nothing makes it better. CVD Risk Factors: Positive for Smoking; Negative for Hypertension, Diabetes, Hypercholesterolemia and Family History 1' </=55 PE Risk Factors: Negative for Recent Travel/Surgery, Recent Immobilization, Prior DVT or PE, Cancer and OCP + Smoking + >/=35 PFSH PFSH Medical History (Updated 07/21/21 @ 19:[address] Robby Bruno, DO) Body mass index greater than 30 GERD (gastroesophageal reflux disease) HTN (hypertension) Hyperlipidemia Migraines Multiple thyroid nodules Obesity Palpitations thumbnail removal Home Medications ketorolac 10 mg PO Q6H PRN #20 tab 08/22/15 [Rx Last Taken 02/08/16] promethazine 25 mg PO Q4H PRN PRN 02/08/16 [History Last Taken 02/08/16] albuterol sulfate 1 - 2 puff INHALATION Q4H PRN PRN #1 inhaler 07/19/17 [Rx Last Taken Unknown] vcxtespdix-lbesobiwrvjdy-rzowoxsq 50 mg-300 mg-40 mg capsule 1 cap PO ONCE 12/31/17 [History Last Taken Unknown] Allergy/AdvReac Type Severity Reaction Status Date / Time prochlorperazine Allergy Unknown Verified 07/21/21 15:31 [From Compazine] prochlorperazine edisylate Allergy Unknown Verified 07/21/21 15:31 [From Compazine] prochlorperazine maleate Allergy Unknown Verified 07/21/21 15:31 [From Compazine] Vqjygqu-Nhi-Kkf Reductase Allergy Unknown Verified 07/21/21 15:31 Inhibitor codeine AdvReac Other Verified 07/21/21 15:31 Family History Mother Multiple sclerosis Father Diabetes Hypertension Cancer Brother Diabetes Hypertension CAD (coronary artery disease) Surgical History H/O: hysterectomy History of laparoscopic cholecystectomy S/P partial hysterectomy Social History Smoking Status: Current every day smoker tobacco type: cigarettes alcohol intake: never ROS ROS ED Constitutional Constitutional ED: Denies chills or fever(s) Eyes Eyes: Reports blurry vision; Denies change in vision ENT ENT ED: Denies rhinorrhea or sore throat Cardiovascular Cardiovascular: Reports chest pain and palpitations Respiratory/Chest Respiratory/Chest: Denies cough or dyspnea Gastrointestinal Gastrointestinal: Reports nausea; Denies abdominal pain or vomiting Genitourinary Genitourinary ED: Denies dysuria or hematuria Musculoskeletal Musculoskeletal: Reports neck pain; Denies back pain Integumentary Denies abscess or rash Neurologic Neurologic: Reports headache(s); Denies weakness Allergic/Immunologic Allergic/Immunologic ED: Denies mouth swelling or urticaria EXAM Physical Exam Const Vital Signs: 07/21/21 15:29 07/21/21 16:22 07/21/21 16:23 Temperature 98 F Temperature Source Temporal Pulse Rate 112 H 95 Respiratory Rate 18 20 H Respiratory Effort Respiratory Pattern Blood Pressure 160/99 H 140/95 H Blood Pressure Mean 119 110 Pulse Ox 95 97 97 Oxygen Delivery Method Room Air Room Air Room Air 07/21/21 16:24 07/21/21 17:00 Temperature Temperature Source Pulse Rate 94 Respiratory Rate 16 Respiratory Effort Normal Non-Labored Respiratory Pattern Normal Blood Pressure 136/86 H Blood Pressure Mean 102 Pulse Ox 95 Oxygen Delivery Method Room Air Positive well nourished and well developed General Appearance ED: well developed HEENT normocephalic and atraumatic Eyes PERRL and EOMs intact bilaterally Neck supple and no JVD Chest Wall inspection of chest normal and palpation of chest normal Resp normal respiratory effort and clear to auscultation bilaterally Effort and Inspection: Negative for respiratory distress Cardio regular rate, regular rhythm and no murmurs GI normal to inspection, nondistended, normoactive bowel sounds, soft to palpation, non-tender and non-distended Extremity normal to inspection General Extremety ED: Negative for edema or tenderness General Extremity: Negative for edema Neuro oriented x3, CN's II-XII intact bilaterally and no sensory deficits noted Sensorium / Orientation: awake and alert Motor Exam: strength 5/5 throughout Psych mental status grossly normal Heart Score History: Moderately Suspicious ECG: Normal Age: >45 - <65 years Risk Factors: 1 or 2 Risk Factors Troponin: </= Normal Limit Score: 3 MDM MDM MDM Narrative Medical decision making narrative: EKG was obtained. On my interpretation, it showed a normal sinus rhythm with occasional PACs with a rate of 102. [place] interval, QRS interval, and QTc intervals were all normal. [place] was normal. There are no acute ST or T wave changes. Portable 1 view chest x-ray was obtained. On my interpretation, lung cisneros are clear. There is normal cardiac silhouette. Bony thorax is normal. There is no acute process noted. Radiologist also interpreted the x-ray and agrees. CBC and basic metabolic profile were obtained. Initial high-sensitivity troponin was obtained and was normal. 2-hour repeat high-sensitivity troponin was normal. Patient has a HEART score of 3. Patient was advised that this is low risk for acute cardiac event. Patient was instructed to follow-up with her primary care physician in 5 to 7 days for further evaluation. Patient was advised that she may need an outpatient stress test since her last stress test was in 2013. Patient understands and is agreeable with the plan. All questions were answered. Lab Data Attestation: I reviewed the patient's lab results. Labs: Laboratory Results - last 24 hr 07/21/21 07/21/21 07/21/21 16:17 16:17 18:15 WBC 10.8 RBC 5.07 Hgb 14.7 Hct 44.7 MCV 88.2 MCH 29.0 MCHC 32.9 RDW Std Deviation 43.7 RDW Coeff of Germain 13.5 Plt Count 222 MPV 11.4 Immature Gran % (Auto) 0.200 Neut % (Auto) 67.2 Lymph % (Auto) 24.7 [place] % (Auto) 6.2 Eos % (Auto) 1.3 Baso % (Auto) 0.4 Absolute Neuts (auto) 7.2 Absolute Lymphs (auto) 2.66 Nucleated RBC % 0 Sodium 143 Potassium 3.6 Chloride 111 H Carbon Dioxide 26.0 Anion Gap 6 BUN 13 Creatinine 0.66 Estim Creat Clear Calc 77.80 Est GFR (MDRD) Af Amer 118 Est GFR (MDRD) Non-Af 97 BUN/Creatinine Ratio 19.6 Glucose 82 Calcium 8.7 Troponin I High Sens 7 8 Radiography Chest X-Ray - ED: 1 View, Read by ED Physician, Read by Radiologist and Normal Diagnostic Testing: Clinical Impression(s) from Imaging Studies Chest X-Ray 07/21/21 16:20 IMPRESSION: Normal x-ray examination of the chest. Electronically Signed: David Gardner MD at 17:15 EDT Tel , Service support , EKG Initial EKG: Attestation: I personally reviewed and interpreted this EKG as follows: Interpretation: Sinus Rhythm (102 with occasional PACs.) and No Acute Injury Pattern Prior EKG tracings: available for review Prior: Unchanged (04/02/2017) Discharge Plan Triage Chief Complaint: Chest Pain ED Provider: Robby Bruno Dx/Rx/DC Orders Clinical Impression: Chest pain of uncertain etiology Instructions: ED Chest Pain, Uncertain Cause Prescriptions: No Action jxhlttgprc-fdsadhuwuowkk-wqel 50-300-40 mg capsule 1 cap PO ONCE RF: 0 ketorolac 10 MG tablet 10 mg PO Q6H PRN (Reason: Migraine Symptoms) Qty: 20 RF: 0 promethazine 25 MG tablet 25 mg PO Q4H PRN PRN (Reason: Nausea/Vomiting) RF: 0 albuterol sulfate 1 INHALER inhaler 1 - 2 puff INHALATION Q4H PRN PRN (Reason: Wheezing) Qty: 1 RF: 0 Primary Care Provider: Kait Lao Referrals: Kait Lao MD [Primary Care Provider] - 3-5 Days Disposition Disposition: Home, Self Care
--- NOTE | 2021-07-21 16:20 | RAD_ITS ---
STUDY: X-RAY CHEST REASON FOR EXAM: Female, 55 years old. chest pain TECHNIQUE: Single AP portable view of the chest. COMPARISON: 04/02/1970 FINDINGS: The lungs are clear and expanded. There is no demonstrated pleural abnormality. Normal size heart. Normal mediastinum and aida. Normal visualized pulmonary arteries. Normal visualized aortic arch and descending thoracic aorta. Normal visualized thoracic spine. Normal visualized ribs, clavicles, and shoulders. There is no demonstrated abnormality of the visualized soft tissue structures of the upper abdomen. RAD/Chest 1 View (Portable) IMPRESSION: Normal x-ray examination of the chest. Electronically Signed: David Gardner MD at 17:15 EDT Tel , Service support ,
[2021-07-21 16:22] VITALS: BP 140/95; PULSE 95; RESP 20; O2SAT 97
[2021-07-21 16:23] VITALS: O2SAT 97
[2021-07-21 16:31] LABS: Absolute Lymphocyte Count 2.66 X10^3/uL (0.83-4.51); Absolute Neutrophil Count 7.2 X10^3/uL (2.0-7.7); Basophil# 0.04 X10^3/uL; Basophil% 0.4 % (0-1); Eosinophil# 0.14 X10^3/uL; Eosinophils% 1.3 % (0-5); Hematocrit 44.7 % (37-47); Hemoglobin 14.7 g/dL (12.0-15.0); Lymphocyte # 2.66 X10^3/ul (0.83-4.51); Lymphocyte % 24.7 % (19-41); Mean Corp Hgb Conc 32.9 g/dL (32-36); Mean Corpuscular Volume 88.2 fL (81-99); Mean Platelet Vol. 11.4 fl (6.2-12.0); Monocyte# 0.67 X10^3/uL; Monocyte% 6.2 % (0-10); NRBC Flagged by Analyzer 0 % (0-5); Neutrophil # 7.24 X10^3/uL (2.7-7.7); Neutrophil % 67.2 % (47-70); Platelet Count 222 K/mm3 (150-450); RBC Distribution Width CV 13.5 % (11.6-14.6); RBC Distribution Width SD 43.7 fl (35.1-43.9); Red Blood Count 5.07 M/mm3 (4.2-5.4); White Blood Count 10.8 K/mm3 (4.4-11.0)
[2021-07-21] MEDS: Aspirin 81 MG TAB.CHEW 324 MG PO (16:32)
[2021-07-21 16:50] LABS: Anion Gap 6 (5-15); BUN 13 mg/dL (7-18); BUN/Creat Ratio 19.6 RATIO (10-20); Calcium,Total 8.7 mg/dL (8.5-10.1); Chloride 111 mmol/L (98-107); Creatinine, Serum 0.66 mg/dL (0.55-1.02); EST Glomerular Filtration Rate 97 mL/min (>60); Est Glom Filt Rate - Afr Amer 118 mL/min (>60); Glucose 82 mg/dL (74-106); Potassium 3.6 mmol/L (3.5-5.1); Sodium Level 143 mmol/L (136-145); Troponin-I HS 7 pg/mL (3.0-54.0)
[2021-07-21 17:00] VITALS: BP 136/86; PULSE 94; RESP 16; O2SAT 95
[2021-07-21 18:39] LABS: Troponin-I HS 8 pg/mL (3.0-54.0)
== END 2021-07-21 19:20 | disposition home or self-care (01) ==
PROVIDERS: Emergency Provider Emergency Medicine; PCP Student in an Organized Health Care Education/Training Program
DX: R07.9 Chest pain, unspecified (principal); K21.9 Gastro-esophageal reflux disease without esophagitis; I10 Essential (primary) hypertension; E66.9 Obesity, unspecified; F17.210 Nicotine dependence, cigarettes, uncomplicated; Z79.899 Other long term (current) drug therapy
CPT/HCPCS: 71045; 80048; 84484; 85025; 93005; 99285; A4216

== ENCOUNTER → 2022-03-16 | Outpatient (CLI) | payer OTHER, SELFPAY ==
--- NOTE | 2022-03-16 07:46 | CT_ITS ---
STUDY: LOW DOSE CT LUNG CANCER SCREENING REASON FOR EXAM: Female, 56 years old. SCREENING FOR LUNG CA. Patient smoked 1 pack per day for 45 years. RADIATION DOSAGE (If Supplied By Facility): CTDIvol = ( 3.02 ) mGy, DLP = ( 92.89 ) mGycm TECHNIQUE: No contrast was administered. Low dose technique was utilized (average mAS-38 and kVp 120). 1.25 mm axial source images with a slice interval of 1.25-mm were reconstructed in lung windows. 2.5 mm axial source images with a slice interval of 2.5-mm were reconstructed in lung windows. 5.0 mm axial source images with a slice interval of 5.0-mm were reconstructed in soft tissue windows. COMPARISON: Comparison is made with prior study dated 11/13/2020. The previously seen sebaceous cyst in the medial aspect of the right breast has decreased in size. NODULES: Stable 1.5 mm noncalcified nodule in the posterior lateral aspect of the left lower lobe as seen on axial image #116. Emphysema: Mild degree of hyperinflation. Mild increased markings in the lingular segment of the left upper lobe suggestive of scarring. Calcified granuloma in the medial aspect of the left upper lobe. Endobronchial lesion: None Aorta: Atherosclerotic plaque formation of the aortic arch. CORONARY ARTERIES: Coronary artery calcification Heart: Stable mild degree of pericardial thickening along the anterior aspect. Pulmonary artery: Unremarkable Mediastinal nodes: Unremarkable Other chest and abdominal findings: CT/Low Dose CT Lung Screening IMPRESSION: Lung-RADS category 2 - Continue annual screening with LDCT in 12 months. IMPORTANT NOTES FOR USE: ACR Lung-RADS Version 1.1 Assessment Categories Release Date: 2018 Category: Coded 0-4 bases on nodule(s) with highest degree of suspicion. Negative screen is defined as categories 1 and 2; a positive screen is defined as categories 3 and 4. Category 3 and 4A nodules that are unchanged on interval CT should be coded as category 2, and individuals returned to screening in 12 months. Category 4X: Category 3 or 4 nodules with additional imaging findings that increase the suspicion of lung cancer, such as spiculation, GGN that doubles in size in 1 year, enlarged lymph notes, etc. Category Modifiers: S (significant finding unrelated to lung cancer) Electronically Signed: Vivek Torres MD at 9:41 EDT ,
== END | disposition home or self-care (01) ==
PROVIDERS: PCP Student in an Organized Health Care Education/Training Program; Referring Provider Student in an Organized Health Care Education/Training Program; Visit Provider Student in an Organized Health Care Education/Training Program
DX: Z12.2 Encounter for screening for malignant neoplasm of respiratory organs (principal)
CPT/HCPCS: 71271

== ENCOUNTER → 2023-03-05 | Outpatient (CLI) | payer BC, SELFPAY ==
[2023-03-05 12:38] LABS: Absolute Lymphocyte Count 2.36 X10^3/uL (0.83-4.51); Absolute Neutrophil Count 6.9 X10^3/uL (2.0-7.7); Basophil# 0.04 X10^3/uL; Basophil% 0.4 % (0-1); Eosinophil# 0.06 X10^3/uL; Eosinophils% 0.6 % (0-5); Hematocrit 46.4 % (37-47); Hemoglobin 14.9 g/dL (12.0-15.0); Lymphocyte # 2.36 X10^3/ul (0.83-4.51); Lymphocyte % 23.7 % (19-41); Mean Corp Hgb Conc 32.1 g/dL (32-36); Mean Corpuscular Hgb 29.9 pg (27.0-32.0); Mean Platelet Vol. 10.9 fl (6.2-12.0); Monocyte# 0.62 X10^3/uL; Monocyte% 6.2 % (0-10); NRBC Flagged by Analyzer 0 % (0-5); Neutrophil # 6.85 X10^3/uL (2.7-7.7); Neutrophil % 68.7 % (47-70); Platelet Count 223 K/mm3 (150-450); RBC Distribution Width CV 13.4 % (11.6-14.6); RBC Distribution Width SD 45.6 fl (35.1-43.9); Red Blood Count 4.99 M/mm3 (4.2-5.4)
[2023-03-05 13:03] LABS: Anion Gap 6 (5-15); BUN 11 mg/dL (7-18); BUN/Creat Ratio 14.9 RATIO (10-20); Calcium,Total 9.9 mg/dL (8.5-10.1); Chloride 107 mmol/L (98-107); Creatinine, Serum 0.74 mg/dL (0.55-1.02); EST Glomerular Filtration Rate 86 mL/min (>60); Est Glom Filt Rate - Afr Amer 104 mL/min (>60); Glucose 113 mg/dL (74-106); Potassium 4.1 mmol/L (3.5-5.1); Sodium Level 142 mmol/L (136-145)
== END | disposition home or self-care (01) ==
LOC: PAT 05-01 16:20
PROVIDERS: PCP Internal Medicine; Referring Provider Internal Medicine Cardiovascular Disease; Visit Provider Internal Medicine Cardiovascular Disease
DX: R94.31 Abnormal electrocardiogram [ECG] [EKG] (principal)
CPT/HCPCS: 36415; 80048; 85025

== ENCOUNTER → 2023-05-16 | Outpatient (CLI) | payer BC, SELFPAY ==
[2023-05-16 13:14] VITALS: BP 137/82; PULSE 67; RESP 14; TEMP 36.6; O2SAT 95; BMI 32.8
--- NOTE | 2023-05-16 13:23 | CT_ITS ---
STUDY: CT CHEST WITH CONTRAST REASON FOR EXAM: Female, 57 years old. CHEST PAIN * LIMITED CHEST OVERED ONLY* RADIATION DOSAGE (If Supplied By Facility): CTDIvol = ( 30.71 ) mGy, DLP = ( 1002.55 ) mGycm TECHNIQUE: Transaxial imaging was performed following intravenous administration of . Individualized dose optimization techniques were used for this CT. COMPARISON: No relevant priors. FINDINGS: CHEST There is a 1 cm bulla in the medial aspect of the right upper lobe as seen on axial image #55. There is a 2.3 cm x 3.5 cm irregular nodular density which is pleural-based in the posterior lingula segment of the left upper lobe as seen on axial image #132. This may represent a focal area of scarring although a pulmonary nodule cannot be excluded. Similar appearing densities are seen in the peripheral lateral aspect of the right middle lobe as seen on axial image #[address] A [address] scan of the thorax following IV contrast is recommended. There is no demonstrated pleural abnormality. There are calcifications of the coronary arteries. Calcified mediastinal lymph nodes. Normal hilar regions. Normal unenhanced pulmonary arteries. There is atherosclerotic calcification of the aortic arch. Normal osseous structures. There is no demonstrated abnormality of the visualized upper abdomen. CT/Limited Chest CT Cardiac Only IMPRESSION: Coronary calcification. Patchy nodular densities seen in the peripheral aspect of the lingular segment of the left upper lobe as well as the lateral aspect of the right middle lobe as described. A dedicated CT scan of the thorax: IV contrast is recommended. Electronically Signed: Vivek Torres MD at 9:07 EDT ,
[2023-05-16 13:28] VITALS: BP 137/82; PULSE 67
[2023-05-16] MEDS: Nitroglycerin SL (ED/IMG/CATH) 0.4 MG TABLET SL (13:28)
[2023-05-16 13:34] VITALS: BP 134/71; PULSE 71; RESP 16; O2SAT 96
--- NOTE | 2023-05-17 08:22 | CCTA.WCONT ---
CCTA w/Cont Coronary Arteries Date of Study:: 05/17/23 Chest pain Coronary Calcium Scoring: High-resolution Computed Tomographic imaging of the chest was performed on [05/16/2023], with particular attention paid to the coronary arteries. Intravenous contrast agent was administered per protocol and images reconstructed and displayed. LEFT MAIN CORONARY ARTERY: This arose from the left coronary cusp and bifurcating to left anterior descending artery and left circumflex artery [] LEFT ANTERIOR DESCENDING CORONARY ARTERY: This vessel did not appear to have any significant luminal irregularities and no atherosclerotic plaquing [] LEFT CIRCUMFLEX CORONARY ARTERY: There was mild calcification noted in the midsegment of the vessel with mild atherosclerotic plaquing [] RIGHT CORONARY ARTERY: Dominant vessel with no significant stenosis present. [] [] CORONARY CALCIUM SCORE: Not done Conclusion: Minimal to mild atherosclerotic plaquing and mild calcification of the mid left circumflex artery. []
== END | disposition home or self-care (01) ==
LOC: CT 12:48
PROVIDERS: PCP Internal Medicine; Referring Provider Physician Assistant Medical; Visit Provider Physician Assistant Medical
DX: R94.39 Abnormal result of other cardiovascular function study (principal)
CPT/HCPCS: 75574; 76380; Q9967

== ENCOUNTER → 2023-06-12 | Outpatient (CLI) | payer BC, SELFPAY ==
--- NOTE | 2023-06-12 14:49 | PFTCOMP_ITS ---
COMPLETE PULMONARY FUNCTION TEST INTERPRETATION Brief HPI: Patient is a 57-year-old female, currently under the care of myself, who presents to [facility] for complete pulmonary function tests secondary to diagnosis of dyspnea. Respiratory therapist reports good effort and reproducible results. Interpretation: Forced expiration spirometry shows no large airways obstructive ventilatory defect with an FEV1 of 86% predicted. There is no significant bronchodilator response by strict ATS criteria. Spirograms are of good quality and plateau slowly, indicating slowly emptying areas of the lungs. The respiratory flow volume loop shows decreased expiratory flow rates at high lung volumes c onsistent with small airways obstruction. Lung volumes by body plethysmography show a normal total lung capacity at 5.35 L, 108% predicted. All other lung volumes are within normal limits. Diffusion capacity by carbon monoxide is normal at 89% predicted. The airway resistance is elevated. No previous pulmonary function tests were available for review. Impression: These pulmonary function tests are grossly within normal limits, but there is some suggestion of small airways disease.
== END | disposition home or self-care (01) ==
LOC: PSN 07:54
PROVIDERS: PCP Internal Medicine; Referring Provider Internal Medicine Critical Care Medicine; Visit Provider Internal Medicine Critical Care Medicine
DX: R06.09 Other forms of dyspnea (principal)
CPT/HCPCS: 94060; 94726; 94729

== ENCOUNTER → 2023-06-21 | Outpatient (CLI) | payer BC, SELFPAY ==
[2023-06-21 14:00] VITALS: PULSE 100; PULSE 101; PULSE 103; PULSE 91; PULSE 92; PULSE 96; PULSE 98; O2SAT 93; O2SAT 94; O2SAT 95; O2SAT 96
--- NOTE | 2023-06-22 09:46 | WT_ITS ---
PSN 6 Minute Walk Test 6 Minute Walk Test 6 Minute Walk Test: 6 Minute Walk Test PSN:6-Minute Walk Test Start: 06/21/23 14:00 Freq: Status: Active Protocol: RESP.6MINW Document 06/21/23 14:00 BRENT (Rec: 06/21/23 14:04 [facility] [id number]) 6 Minute Walk Test Date Performed 06/21/23 Time Performed 13:45 Height 5 ft 4 in Weight: 192 lb 4.6 oz Weight in Pounds 192.[address]: Venkat Menjivar FIO2 (% Oxygen) 0.21 Assistive device used: None Pre-test Oxygen Delivery Method Room Air Pulse Ox 94 Pulse Rate (60-100) 96 Dyspnea Cesar Scale (0-10) 0.5 Exertion Cesar Scale (6-20) 8 1st minute Oxygen Delivery Method Room Air Pulse Ox 94 Pulse Rate (60-100) 98 2nd minute Oxygen Delivery Method Room Air Pulse Ox 94 Pulse Rate (60-100) 92 3rd minute Oxygen Delivery Method Room Air Pulse Ox 94 Pulse Rate (60-100) 103 H 4th minute Oxygen Delivery Method Room Air Pulse Ox 96 Pulse Rate (60-100) 100 5th minute Oxygen Delivery Method Room Air Pulse Ox 93 Pulse Rate (60-100) 101 H 6th minute Oxygen Delivery Method Room Air Pulse Ox 95 Pulse Rate (60-100) 96 Post-test Oxygen Delivery Method Room Air Pulse Ox 96 Pulse Rate (60-100) 91 Dyspnea Cesar Scale (0-10) 0.5 Exertion Cesar Scale (6-20) 8 Full Laps Walked 14 Partial Lap, Number of Tiles Walked 0 Total Distance Walked (ft) 826 Interpretation Interpretation: The patient ambulated 826 feet over the course of 6 minutes beginning on room air without assistive devices. Pretesting oxygen saturation was noted to be 94% on room air. With ambulation, the mable oxygen saturation was 93%. There was no significant exertional oxygen desaturation. Recommendations Recommendations: There is no indication for the use of supplemental oxygen at this time.
== END | disposition home or self-care (01) ==
LOC: PSN 13:38
PROVIDERS: PCP Internal Medicine; Referring Provider Internal Medicine Critical Care Medicine; Visit Provider Internal Medicine Critical Care Medicine
DX: R06.09 Other forms of dyspnea (principal)
CPT/HCPCS: 94060; 94726; 94729

== ENCOUNTER → 2023-08-20 | Outpatient (CLI) | payer BC, SELFPAY ==
--- NOTE | 2023-08-20 12:36 | CT_ITS ---
EXAM: CT CHEST WITHOUT INTRAVENOUS CONTRAST CLINICAL INDICATION: Lingular nodule TECHNIQUE: Helically acquired images were obtained of the chest without intravenous contrast. This CT exam was performed using one or more of the following dose reduction techniques: automated exposure control, adjustment of the mA and/or kV according to patient size, and/or use of iterative reconstruction technique. COMPARISON: 05/16/2023 FINDINGS: LUNGS AND PLEURAL SPACES: Procedures described nodule in the lingula is not present on this examination likely represented an area elevation. Groundglass opacity in the anterior right middle lobe was also not present on today''s exam and may be from infectious etiology. No pleural effusion or thickening. No pneumothorax. HEART: Unremarkable. Heart size is normal. No pericardial effusion. No significant coronary artery calcifications. MEDIASTINUM: Unremarkable. No mediastinal or hilar adenopathy. Esophagus is unremarkable. No hiatal hernia. THYROID: Unremarkable. No thyroid lesions. BONES/JOINTS: Unremarkable. No suspicious lytic or blastic abnormality. VASCULATURE: Unremarkable. Thoracic aorta is non-dilated. CT/Chest without Contrast IMPRESSION: No acute pulmonary abnormality. Previously described nodules in the lingula and right middle lobe are not present on today''s exam and likely represented areas of consolidation and pneumonia. Electronically Signed: Timothy Melton MD at 0:04 EST ,
== END | disposition home or self-care (01) ==
LOC: CT 12:36
PROVIDERS: PCP Internal Medicine; Referring Provider Internal Medicine Critical Care Medicine; Visit Provider Internal Medicine Critical Care Medicine
DX: R91.1 Solitary pulmonary nodule (principal)
CPT/HCPCS: 71250

== ENCOUNTER 2023-12-04 10:29 | Outpatient (CLI) | payer BC, SELFPAY ==
[2023-12-04] MEDS: Zoledronic Acid 5 MG 100 ML 300 MG IV (11:16)
[2023-12-04] MEDS: 0.9% NaCl Peripheral Flush Adult/Peds IV (11:17)
[2023-12-04 11:21] VITALS: BP 132/63; PULSE 69; RESP 16; TEMP 36.9; O2SAT 98; BMI 33.1
== END 2023-12-04 10:30 | disposition home or self-care (01) ==
LOC: MEDOUTP 10:30
PROVIDERS: PCP Internal Medicine; Referring Provider Internal Medicine Endocrinology, Diabetes & Metabolism; Visit Provider Internal Medicine Endocrinology, Diabetes & Metabolism
DX: M85.80 Other specified disorders of bone density and structure, unspecified site (principal)
CPT/HCPCS: 96374; A4216; J3489

== ENCOUNTER 2023-12-04 12:00 | Emergency (ER) | payer BC, SELFPAY ==
[2023-12-04 12:01] VITALS: BP 130/65; PULSE 67; RESP 14; TEMP 37.1; O2SAT 97
== END 2023-12-04 13:15 | disposition left against medical advice (07) ==
LOC: ED 13:14
PROVIDERS: PCP Internal Medicine
DX: Z53.21 Procedure and treatment not carried out due to patient leaving prior to being seen by health care provider (principal)